=== PATIENT | female | born 1975 | race African-American/Black ===

== ENCOUNTER 2023-07-24 16:45 | Emergency (ER) | payer MEDICAID ==
[~2023-07-24] VITALS: Ht 175.3 cm; Wt 68.0 kg
[2023-07-24] MEDS ORDERED: MIDAZOLAM 2 MG/2 ML VIAL IM ONE (16:55)
[2023-07-24] MEDS ORDERED: MIDAZOLAM 5 MG/5 ML VIAL ONE (16:56)
[2023-07-24] MEDS: MIDAZOLAM 5 MG/5 ML VIAL IM ONE (17:05)
[2023-07-24 17:07] VITALS: BP 131/78; PULSE 83; RESP 14; TEMP 98.1; O2SAT 99
[2023-07-24 18:17] LABS: BASOPHILS % (AUTO) 0.8 % (0.0-2.0); EOSINOPHILS % (AUTO) 1.2 % (0.0-4.0); HEMATOCRIT 42.2 % (36-48); HEMOGLOBIN 14.2 g/dL (12.0-16.0); LYMPHOCYTES # (AUTO) 2.2 K/uL (2.5-16.5); LYMPHOCYTES % (AUTO) 56.4 % (20.5-51.1); MEAN CORPUSCULAR HEMOGLOBIN 32 pg (27-31); MEAN CORPUSCULAR HGB CONC 34 g/dL (33-37); MEAN CORPUSCULAR VOLUME 95.5 fL (80-94); MONOCYTES # (AUTO) 0.2 K/uL (0.8-1.0); MONOCYTES % (AUTO) 5.8 % (1.7-9.3); NEUTROPHILS # (AUTO) 1.4 K/uL (1.8-7.7); NEUTROPHILS % (AUTO) 35.8 % (42.2-75.2); PLATELET COUNT (AUTO) 191 K/uL (140-450); RED BLOOD CELL COUNT(AUTO) 4.42 MIL/uL (4.20-5.40); RED CELL DISTRIBUTION WIDTH 16.6 % (11.6-13.7)
[2023-07-24 18:40] LABS: ANION GAP 15.3 (8-16); CALCIUM 8.3 mg/dL (8.5-10.1); CARBON DIOXIDE 27.1 mmol/L (21-32); CREATININE 0.6 mg/dL (0.6-1.3); POTASSIUM 3.4 mmol/L (3.5-5.1)
[2023-07-24 18:55] LABS: ALANINE AMINOTRANSFERASE 58 U/L (12-78); ALBUMIN 3.9 g/dL (3.4-5.0); ALKALINE PHOSPHATASE 76 U/L (50-136); ASPARTATE AMINOTRANSFERASE 63 U/L (15-37); BILIRUBIN,DIRECT 0.2 mg/dL (0.0-0.3); SALICYLATE 4.1 mg/dL (2.8-20.0); TOTAL BILIRUBIN 0.6 mg/dL (0.0-1.0); TOTAL PROTEIN, SERUM 7.2 g/dL (6.4-8.2)
[2023-07-24 19:01] LABS: ACETAMINOPHEN < 0.5 ug/ml (10-30); ALCOHOL, BLOOD 424 mg/dL (<10)
[2023-07-24 19:39] VITALS: O2SAT 98
[2023-07-24 21:51] VITALS: O2SAT 98
[2023-07-25 00:33] VITALS: O2SAT 98
[2023-07-25 00:34] VITALS: BP 128/78; PULSE 79; RESP 14; TEMP 98.1
[2023-07-25 04:04] VITALS: O2SAT 96
== END 2023-07-25 06:52 | disposition home or self-care (01) ==
LOC: MED 16:45 → EDBD 16:45 → MED 07-25 06:52
DX: G93.49 Other encephalopathy (principal); F10.129 Alcohol abuse with intoxication, unspecified; I10 Essential (primary) hypertension; Z79.899 Other long term (current) drug therapy; Y90.9 Presence of alcohol in blood, level not specified
CPT/HCPCS: 36415; 70450; 80048; 80076; 81025; 84484; 85025; 93005; 96372; 99291; G0480; G0482; J2250